=== PATIENT | male | born 1955 | race Caucasian/White ===

== ENCOUNTER → 2023-06-20 09:23 | Outpatient (CLI) | payer MEDICARE, SELFPAY ==
[2023-06-20 19:28] LABS: Alanine Aminotransferase 22 IU/L (<50); Albumin 4.7 g/dL (3.5-5.0); Albumin Globulin Ratio 1.6 (1.0-2.8); Alkaline Phosphatase 65 U/L (38-126); Aspartate Aminotransferase 33 IU/L (17-59); BUN Creatinine Ratio 15.3 (6-22); Bilirubin Total 0.5 mg/dL (0.2-1.3); Blood Urea Nitrogen 11 mg/dL (9-20); Calcium 10.5 mg/dL (8.4-10.2); Carbon Dioxide 29 mmol/L (22-32); Chloride 99 mmol/L (98-107); Cholesterol 177 mg/dL (140-199); Estimated Glomerular Filt Rate > 60 mL/min (>60); Globulin 2.9 g/dL (1.7-4.1); Glucose 101 mg/dL (80-110); HDL Cholesterol 86 mg/dL (40-60); HEMOLYSIS 15 (0-50); LDL Cholesterol Calculated 79 mg/dL (<100); Potassium 4.7 mmol/L (3.4-5.1); Sodium 137 mmol/L (137-145); Total Protein 7.6 g/dL (6.3-8.2); Triglycerides 62 mg/dL (35-150)
[2023-06-20 19:31] LABS: Add Manual Diff / Slide Review NO; Basophils Absolute Auto 100 /uL (0-100); Eosinophils Absolute Auto 100 /uL (0-450); Eosinophils Percent Auto 1.3 % (2-4); Hematocrit 46.4 % (41-53); Hemoglobin 16.1 g/dL (13.5-17.5); Lymphocytes Absolute Auto 2700 /uL (1100-4500); Lymphocytes Percent Auto 27.4 % (25-40); Mean Corpuscular HGB Conc 34.6 % (30-36); Mean Corpuscular Hemoglobin 34.4 PG (26-34); Mean Corpuscular Volume 99.4 fL (80-100); Monocytes Absolute Auto 1500 /uL (0-900); Monocytes Percent Auto 15.4 % (3-14); Neutrophils Absolute Auto 5500 /uL (1500-7000); Neutrophils Percent Auto 54.9 % (50-75); Platelet Count 270 X10^3/uL (150-400); Red Blood Cell Count 4.67 X10^6/uL (4.5-5.9); Red Cell Distribution Width 13.5 % (11.6-14.8)
[2023-06-20 19:54] LABS: Prostate Specific Antigen Scrn 12.6 ng/mL (0.1-4.0)
== END ==
PROVIDERS: PCP Physician Assistant; Visit Provider Physician Assistant
DX: Z12.5 Encounter for screening for malignant neoplasm of prostate (principal); Z13.6 Encounter for screening for cardiovascular disorders; R63.4 Abnormal weight loss; F41.9 Anxiety disorder, unspecified
CPT/HCPCS: 80053; 80061; 84443; 85025; G0103

== ENCOUNTER → 2023-07-08 13:06 | Outpatient (CLI) | payer MEDICARE, SELFPAY ==
[2023-07-08 20:25] LABS: Vitamin D 25 Hydroxy (D3) 25.4 ng/mL (30.0-100.0)
[2023-07-10 15:24] LABS: Free Kappa Lt Chains, Serum 23.2 mg/L (3.3-19.4); Free Lambda Lt Chains,Serum 12.8 mg/L (5.7-26.3)
[2023-07-11 10:04] LABS: Calcium 9.9 mg/dL (8.6-10.2); Parathyroid Hormone, Intact 42 pg/mL (15-65)
[2023-07-11 16:41] LABS: Albumin 3.9 g/dL (2.9-4.4); Alpha-1-Globulin 0.3 g/dL (0.0-0.4); Alpha-2-Globulin 0.7 g/dL (0.4-1.0); Gamma Globulin 0.9 g/dL (0.4-1.8); Globulin Total 2.8 g/dL (2.2-3.9); Protein, Total 6.7 g/dL (6.0-8.5)
== END ==
PROVIDERS: PCP Physician Assistant; Visit Provider Family Medicine
DX: E83.52 Hypercalcemia (principal); R97.20 Elevated prostate specific antigen [PSA]; G62.9 Polyneuropathy, unspecified
CPT/HCPCS: 82306; 82310; 83883; 83970; 84155; 84165

== ENCOUNTER → 2023-07-19 09:58 | Outpatient (CLI) | payer MEDICARE, SELFPAY ==
--- NOTE | 2023-07-19 10:30 | DI.CT.S_ITS ---
PROCEDURE: CT LUNG LOW DOSE SCREENING INDICATIONS: 40 py history, current smoker, lung cancer screening TECHNIQUE: Noncontrast 2.0-2.5 mm thick sections acquired from the pulmonary apices to the posterior costophrenic angles. 7 mm thick axial MIP, and 5 mm coronal and sagittal reformats were then acquired. A low radiation dose technique was utilized. COMPARISON: None. FINDINGS: Image quality: Diagnostic, given the low radiation dose technique. Lungs and pleura: Mild upper lobe predominant pulmonary emphysematous changes. No focal consolidation. No suspicious pulmonary nodule or mass lesion. No septal thickening or nodularity. No pneumothorax or pleural effusion. Mediastinum: Heart size is normal. Coronary atherosclerotic vascular calcifications are noted. No pericardial effusion. No mediastinal adenopathy by size criteria. Thoracic aorta and central pulmonary arteries are normal in size. Esophagus is normal in caliber. No hiatal hernia. Bones and chest wall: No suspicious bony lesions. No vertebral body compression fractures. No axillary or supraclavicular adenopathy by size criteria. Thyroid gland is unremarkable. Abdomen: Visualized upper abdomen solid organs and bowel loops appear normal in the absence of contrast. IMPRESSION: No suspicious pulmonary nodules. No acute cardiopulmonary abnormalities. Mild upper lobe predominant pulmonary emphysematous changes. Atherosclerosis. LUNG-RADS 1; recommend continued annual screening low-dose chest CT in 1 year. Dictated by: Harish Coronel M.D. on 07/19/2023 at 12:05 Approved by: Harish Coronel M.D. on 07/19/2023 at 12:09
== END ==
PROVIDERS: PCP Physician Assistant; Referring Provider Family Medicine; Visit Provider Family Medicine
DX: F17.210 Nicotine dependence, cigarettes, uncomplicated (principal); Z71.6 Tobacco abuse counseling; Z12.2 Encounter for screening for malignant neoplasm of respiratory organs; I25.10 Atherosclerotic heart disease of native coronary artery without angina pectoris
CPT/HCPCS: 71271

== ENCOUNTER → 2023-10-02 13:02 | Outpatient (CLI) | payer OTHER, SELFPAY ==
[2023-10-02 20:07] LABS: Alanine Aminotransferase 23 IU/L (<50); Albumin 4.3 g/dL (3.5-5.0); Albumin Globulin Ratio 1.5 (1.0-2.8); Alkaline Phosphatase 76 U/L (38-126); BUN Creatinine Ratio 17.9 (6-22); Bilirubin Total 0.7 mg/dL (0.2-1.3); Blood Urea Nitrogen 12 mg/dL (9-20); Calcium 9.8 mg/dL (8.4-10.2); Carbon Dioxide 27 mmol/L (22-32); Chloride 98 mmol/L (98-107); Estimated Glomerular Filt Rate > 60 mL/min (>60); Globulin 2.9 g/dL (1.7-4.1); Glucose 126 mg/dL (80-110); Potassium 4.6 mmol/L (3.4-5.1); Sodium 134 mmol/L (137-145); Total Protein 7.2 g/dL (6.3-8.2)
[2023-10-04 16:07] LABS: HEMOLYSIS < 15 (0-50)
[2023-10-04 16:08] LABS: Aspartate Aminotransferase 36 IU/L (17-59)
[2023-10-04 18:50] LABS: Free Kappa Lt Chains, Serum 24.2 mg/L (3.3-19.4)
== END ==
PROVIDERS: PCP Physician Assistant; Visit Provider Family Medicine
DX: E83.52 Hypercalcemia (principal); R76.8 Other specified abnormal immunological findings in serum
CPT/HCPCS: 80053; 83883

== ENCOUNTER → 2023-10-08 09:01 | Outpatient (CLI) | payer OTHER, SELFPAY ==
--- NOTE | 2023-10-08 09:02 | DI.MRI.S_ITS ---
PROCEDURE: MR PELVIC PROSTATE PROTOCOL INDICATIONS: Elevated PSA TECHNIQUE: Coronal HASTE, axial T1 FSE with fat saturation, 3-plane nonbreath-hold T2 FSE. After the administration of contrast, dynamic axial, delayed axial and coronal VIBE or 2-D FLASH with fat saturation through the pelvis. Diffusion weighted imaging and ADC was performed. COMPARISON: None. FINDINGS: Image quality: Diffusion weighted and dynamic contrast enhanced images are diagnostic. Prostate: Gland size is 4.3 x 3.7 x 3.5 cm; ellipsoid gland volume is 29 mL. Lesion 1: Location: Right lateral transition zone, mid gland, on axial series 4, image 10 and coronal series 5, image 14. Size: 1.2 x 1.2 cm. T2W signal: Hypointense. DWI signal: Markedly hyperintense. ADC signal: Markedly hypointense. Enhancement: Yes. Extracapsular extension: No. No neurovascular involvement. PI-RADS score: 4 Lesion 2: Location: Left lateral transition zone, mid gland, on axial series 4, image 10 and coronal series 5, image 14. Size: 1.1 x 1.8 cm. T2W signal: Hypointense. DWI signal: Markedly hyperintense. ADC signal: Markedly hypointense. Enhancement: Yes. Extracapsular extension: Broad-based contact. PI-RADS score: 5 Genitourinary system: Bladder wall thickness is normal. Distal ureters are non distended. Bowel and peritoneum: No pathologic free pelvic fluid. Inferior colon and small bowel loops are normal in caliber. Nodes and vessels: No pelvic or inguinal adenopathy by size criteria. Iliac vessels are normal in caliber. Soft tissues: No inguinal hernias. Bones: Marrow demonstrates normal overall signal, without lesions to suggest metastases. IMPRESSION: PI-RADS 4 in 5 lesions in the peripheral zone of the mid gland, as above. No pelvic lymphadenopathy by size criteria. No aggressive osseous abnormality. Dictated by: Irineo Barahona M.D. on 10/08/2023 at 12:16 Approved by: Irineo Barahona M.D. on 10/08/2023 at 12:25
== END ==
PROVIDERS: PCP Physician Assistant; Referring Provider Urology; Visit Provider Urology
DX: N42.9 Disorder of prostate, unspecified (principal); R97.20 Elevated prostate specific antigen [PSA]
CPT/HCPCS: 72197

== ENCOUNTER → 2023-11-12 15:00 | Outpatient (CLI) | payer OTHER, SELFPAY ==
--- NOTE | 2023-11-12 15:02 | DI.MRI.S_ITS ---
PROCEDURE: MR BRAIN (IAC) WWO CON INDICATIONS: Sensorineural hearing loss, bilateral TECHNIQUE: Noncontrast sagittal T1 spin echo, axial FLAIR, axial gradient echo, axial diffusion and ADC through the brain. Axial thin-slice 3D CISS, coronal TruFISP, axial T1 spin echo with fat saturation through the internal auditory canals. After the administration of contrast, thin slice axial and coronal T1 spin echo with fat saturation through the internal auditory canals, and axial and coronal and sagittal T1 spin echo with fat saturation through the brain. COMPARISON: None. FINDINGS: Image quality: Excellent. Cerebellopontine angles: No cerebellopontine angle masses. Inner ear structures appear normally formed. No suspicious enhancement in the internal auditory canal or along the course of the 7th cranial nerve. CSF spaces: Ventricles are normal in size and shape. No extra-axial fluid collections. Basal cisterns are patent. Brain: No intracranial bleeds or mass effects. Todd-white matter interface is intact. No abnormal intracranial enhancement. Diffusion weighted images demonstrate no acute ischemic insults. Brainstem appears normal. Normal intravascular flow voids are present. Atrophy and chronic ischemic change noted Skull and face: Calvarial marrow signal is normal. Orbits appear normal. Sinuses: Sinuses and mastoids are clear. IMPRESSION: Unremarkable 7th and 8th cranial nerve complexes without evidence of abnormal enhancement or vestibular schwannoma Approved by: Jose Francisco De Leon M.D. on 11/12/2023 at 20:06
== END ==
PROVIDERS: PCP Physician Assistant; Referring Provider Otolaryngology; Visit Provider Otolaryngology
DX: H90.3 Sensorineural hearing loss, bilateral (principal)
CPT/HCPCS: 70553; A9579

== ENCOUNTER 2023-12-24 06:10 | Day surgery (SDC) | payer MEDICARE, SELFPAY ==
[2023-12-23 10:45] VITALS: BMI 22.4
[2023-12-24] VITALS (7 sets, daily range): BP systolic 103–132; BP diastolic 62–86; PULSE 73–83; RESP 14–17; TEMP 36.7–37; O2SAT 92–96; BMI 22.3
[2023-12-24] MEDS: LACTATED RINGERS 1,000 ML 42 ML IV ×2 (06:50→08:23)
[2023-12-24] MEDS: ACETAMINOPHEN 325 MG TABLET 975 MG PO (06:52)
[2023-12-24] MEDS: GENTAMICIN 340 MG in SODIUM CHLORIDE 0.9% 100 ML 108.5 MG IV (07:35)
--- NOTE | 2023-12-24 07:38 | PM.PREOP ---
Pre-operative Note COVID-19 COVID-19 status: Not tested Interval Note History & Physical reviewed/Exam performed by Physician: Yes Changes to H&P: No
--- NOTE | 2023-12-24 08:20 | SUR.OPER ---
Lithotomy on padded OR bed, head on pillow, arms secured on padded arm boards at <90 degrees abduction. Legs secured in padded yellow fins stirrups.
--- NOTE | 2023-12-24 08:47 | PM.OP.1 ---
Procedure & Clinicians Procedure: Transrectal ultrasound needle biopsy of the prostate Same procedure as scheduled: Yes Indications: This 68-year-old male with a PSA of 12.6 was found by imaging to have a PI-RADS 4 and 5 lesion in the right and left mid prostate and originally presented to the office for transrectal ultrasound needle biopsy of the prostate. In the office however it was too painful for the patient to tolerate so he is brought to the operating room to have the biopsy done under anesthesia. Surgeon: Adriano Hooper Click Yes if Unassisted: Yes Anesthesia Type: General and Local (Periprostatic block with 1% lidocaine) Operative Notes Findings: At ultrasound seminal vesicles and vas are in normal position configuration and echotexture. The bladder was only partially filled so definitive comment can not be made what is seen does appear to be normal the prostate is measured at around 29 mL. The outline of the prostate is undisturbed. There were few cystic lesions in the prostate in an occasional stone there are no true hypoechoic lesions. Biopsies were taken with focus on the right and left mid prostate as noted below. Closure Type: not applicable Specimen(s): other (Core samples from prostate) Prosthetic devices, grafts, tissues, transplants, or devices: None Estimated Blood Loss (mL): 5 Blood products transfused: none Procedure in detail: Procedure in detail: After informed consent was obtained, the patient was identified and brought to the operating room where he was placed in his supine position on the table. Once their anesthesia was induced and maintained. Ensuring an adequate level of anesthesia the patient was transitioned to the lithotomy position. Once in the lithotomy position after having previous confirmed that he would taken his oral antibiotics and bowel prep that gentamicin had been infused and ensuring an adequate level of anesthesia and after time-out the ultrasound probe was inserted and periprostatic block performed with 1% lidocaine. Serial images were then taken through the transverse and longitudinal planes of the prostate with player services representative images collected via the image collection device. Prostate was then measured and biopsies were then taken in the following fashion. There were 2 samples taken from the right and left base of the prostate. There were 4 samples taken from the areas of interest on the right mid and left mid of the prostate. And there were 2 samples taken from the right and left apex. With the samples in hand the ultrasound probe was removed the patient was cleaned. He was then awakened having tolerated the procedure well to be transferred to the postanesthesia care unit for recovery once recovered he will be discharged to home there were no complications. Complications: none Post-operative Condition: stable Disposition: PACU Plan for aftercare: Discharged to home after recovery follow up in my office with biopsy results.
== END 2023-12-24 09:24 | disposition home or self-care (01) ==
PROVIDERS: PCP Physician Assistant; Referring Provider Urology; Visit Provider Urology
PROC: 0VH071Z Insertion of Radioactive Element into Prostate, Via Natural or Artificial Opening (ICD-10-PCS; CPT 55876; principal; 2023-12-24 07:45)
DX: R97.20 Elevated prostate specific antigen [PSA] (principal); R93.89 Abnormal findings on diagnostic imaging of other specified body structures; N40.1 Benign prostatic hyperplasia with lower urinary tract symptoms; N13.8 Other obstructive and reflux uropathy
CPT/HCPCS: 55700; 76872; J1100; J1885; J2405; J2704; J3010

== ENCOUNTER → 2024-02-07 10:37 | Outpatient (CLI) | payer MEDICARE, SELFPAY ==
--- NOTE | 2024-02-07 10:39 | DI.NM.S_ITS ---
PROCEDURE: NM BONE SCAN WHOLE BODY RADIOPHARMACEUTICAL: 20.5 mCi Tc-99m MDP IV. INDICATIONS: New diagnosis prostate cancer TECHNIQUE: Delayed whole-body scintigrams were obtained approximately 3-4 hours after intravenous injection of radiotracer. Anterior and posterior views were acquired from vertex to feet. Additional left and right oblique views of the pelvis were obtained. COMPARISON: [facility], CT, CT ABDOMEN PELVIS W CON, 02/07/2024, 12:59. FINDINGS: No lesions are identified in skull, sternum, clavicles, scapulae, ribs, bony pelvis, and visualized shafts of the long bones. There are foci of increased uptake in cervical, thoracic and lumbar spine most likely secondary to degenerative disc and facet disease; early metastasis to spine could be obscured by degenerative changes. There are foci of increased periarticular activity involving shoulders, sternoclavicular joints, elbows, wrists, hands, hips, SI joints, knees, ankles and feet, compatible with degenerative/arthritic changes. There are 2 kidneys, normal in size and position. There is normal soft tissue uptake. IMPRESSION: No scintigraphic findings to suggest osseous metastasis. Dictated by: Martinez Izaguirre M.D. on 02/07/2024 at 15:44 Approved by: Martinez Izaguirre M.D. on 02/07/2024 at 17:06
--- NOTE | 2024-02-07 10:39 | DI.CT.S_ITS ---
PROCEDURE: CT ABDOMEN PELVIS W CON INDICATIONS: New diagnosis prostate cancer TECHNIQUE: After the administration of intravenous contrast, axial sections acquired from the lung bases to the pubic symphysis. Coronal and sagittal reformats were performed. For radiation dose reduction, the following was used: automated exposure control, adjustment of mA and/or kV according to patient size. COMPARISON: None. FINDINGS: Image quality: Diagnostic. Lower Chest: No significant findings. ABDOMEN: Liver: No solid mass. Gallbladder: No radiopaque gallstones or wall thickening. Biliary ducts: No biliary dilation. Pancreas: No ductal dilation. Spleen: Size is within normal limits. Adrenal Glands: No adrenal nodules. Kidneys and Ureters: No hydronephrosis. No solid mass. No complex renal cystic lesion which requires follow up. Stomach and Bowel: Normal colonic caliber, without significant wall thickening. Colonic diverticulosis without evidence of diverticulitis. Peritoneum: No abnormal intraperitoneal fluid. No free air. Ventral Wall: No significant ventral hernia. Abdominal Nodes: No retroperitoneal or mesenteric adenopathy by size criteria. Vessels: Aorta and inferior vena cava are normal in size. PELVIS: Pelvic Organs: Prostatomegaly. Mild enhancement of the right peripheral zone of the mid gland, likely primary malignancy. Smooth contour of the prostate. Bladder: No bladder wall thickening, accounting for underdistention. Pelvic Nodes: No enlarged lymph nodes. Miscellaneous: No inguinal hernias are seen. Bones: No aggressive osseous abnormality. IMPRESSION: Mild enhancement of the right peripheral zone of the mid prostate, likely the primary malignancy. No retroperitoneal or pelvic adenopathy or aggressive osseous abnormality. Dictated by: Irineo Barahona M.D. on 02/07/2024 at 13:48 Approved by: Irineo Barahona M.D. on 02/07/2024 at 13:53
[2024-02-07 12:30] LABS: BUN Creatinine Ratio 15.5 (6-22); Blood Urea Nitrogen 9 mg/dL (9-20); Calcium 9.4 mg/dL (8.4-10.2); Carbon Dioxide 28 mmol/L (22-32); Chloride 101 mmol/L (98-107); Estimated Glomerular Filt Rate > 60 mL/min (>60); Glucose 90 mg/dL (80-110); HEMOLYSIS < 15 (0-50); Potassium 4.3 mmol/L (3.4-5.1); Sodium 136 mmol/L (137-145)
== END ==
PROVIDERS: PCP Physician Assistant; Referring Provider Urology; Visit Provider Urology
DX: C61 Malignant neoplasm of prostate (principal)
CPT/HCPCS: 36415; 74177; 78306; 80048; A9503; Q9967

== ENCOUNTER → 2025-03-31 11:24 | Outpatient (CLI) | payer MEDICARE, OTHER, SELFPAY ==
[2025-03-31 22:18] LABS: Prostate Specific Antigen 14.7 ng/mL (0.10-4.00)
== END ==
PROVIDERS: PCP Physician Assistant
DX: C61 Malignant neoplasm of prostate (principal)
CPT/HCPCS: 84153